=== PATIENT | female | born 1950 | race Two or more races ===

== ENCOUNTER 2024-05-23 10:34 | Day surgery (SDC) | payer MEDICARE ==
[2024-05-21 09:43] VITALS: BMI 37.0
[~2024-05-23 10:34] MED LIST: LACTATED RINGERS 1,000 ML IV SCH; LIDOCAINE 1% (10MG/ML) FOR IV START INTRADERMA PRN
[2024-05-23] MEDS: IV FLUID CONTINUATION 1,000 ML IV ONE (11:05)
[2024-05-23 11:15] VITALS: RESP 16; TEMP 97.4
[2024-05-23] MEDS ORDERED: PROPOFOL 10 MG/ML 20 ML VIAL IV ONE (12:25)
--- NOTE | 2024-05-23 12:49 | P.PCN ---
Date of Procedure: 05/23/24 Procedure(s) Performed: BRIEF HISTORY: Patient is a 73-year-old pleasant white female scheduled for an elective colonoscopy as a part of evaluation of chronic diarrhea for the last 6 months duration. She has 5-6 loose watery bowel movements daily but no blood or mucus in the stool. PROCEDURE PERFORMED: Colonoscopy with random biopsies. PREOPERATIVE DIAGNOSIS: Chronic diarrhea. IV sedation per Anesthesia. PROCEDURE: After informed consent was obtained, the patient, was brought into the endoscopy unit. IV sedation was administered by Anesthesia under continuous monitoring. Digital rectal examination was normal. Initially the Olympus CF-160 flexible video colonoscope was then inserted in the rectum, gradually advanced into the right colon with moderate to severe difficulty. Careful examination was performed as the scope was gradually being withdrawn. Ileocecal valve was visualized and appeared normal. Prep was excellent despite multiple attempts at getting abdominal pressure I was not able to advance the scope to the base of the cecum. However part of the cecum was visualized and appeared normal. Mucosa of the ascending colon, transverse colon, descending colon, sigmoid colon, and rectum appeared normal. Retroflexion was performed in the rectum and no lesions were seen. Biopsies were done from the ascending and descending colon to rule microscopic/collagenous colitis. The patient tolerated the procedure well. IMPRESSION: Normal-appearing colon from rectum to cecum no evidence of colitis or colorectal neoplasia. RECOMMENDATIONS: Findings of this examination were discussed with the patient as well as her family. She was advised to follow-up with the biopsy results. She will be seen in the office in 2 to 3 weeks..
[2024-05-23 13:12] VITALS: BP 138/86; PULSE 91
== END 2024-05-23 13:30 | disposition home or self-care (01) ==
LOC: ORWHC2ENDO 10:34
PROVIDERS: ATTEND Internal Medicine Gastroenterology
DX: K52.9 Noninfective gastroenteritis and colitis, unspecified (principal); I10 Essential (primary) hypertension; K21.9 Gastro-esophageal reflux disease without esophagitis; Z87.891 Personal history of nicotine dependence; Z88.5 Allergy status to narcotic agent; Z85.72 Personal history of non-Hodgkin lymphomas; Z79.899 Other long term (current) drug therapy
CPT/HCPCS: 88305; 45380; J2704